=== PATIENT | female | born 1940 | race Caucasian/White ===

== ENCOUNTER 2018-06-11 21:28 | Observation (INO) ==
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
[2018-06-11] MEDS ORDERED: Morphine Inj 4 MG/ML Vial IV.PUSH ONE ×2 (22:20→23:11)
--- NOTE | 2018-06-11 23:08 | XR ---
EXAM DATE: 06/11/2018 11:02 PM EDT AGE/SEX: 77 years / Female INDICATIONS: Pain from fall. CLINICAL DATA: This is the patient's initial encounter. Patient reports that signs and symptoms have been present for 1 day and indicates a pain score of 5/10. MEDICAL/SURGICAL HISTORY: None. None. COMPARISON: No prior exams available for comparison. FINDINGS: Bony structures are intact and in normal alignment. Osseous density is decreased. Soft tissues are un remarkable. No radiopaque foreign bodies seen. CONCLUSION: No acute findings. Osteopenia. Moderate to severe osteoarthritis on the radial aspect of the wrist. Electronically signed by: Ernie Koenig MD 06/11/2018 11:07 PM EDT
--- NOTE | 2018-06-11 23:15 | XR ---
EXAM DATE: 06/11/2018 11:03 PM EDT AGE/SEX: 77 years / Female INDICATIONS: Pain from fall. CLINICAL DATA: This is the patient's initial encounter. Patient reports that signs and symptoms have been present for 1 day and indicates a pain score of 10/10. MEDICAL/SURGICAL HISTORY: None. None. COMPARISON: No prior exams available for comparison. FINDINGS: Bony structures are intact and in normal alignment. Osseous density is decreased. Soft tissues are un remarkable. No radiopaque foreign bodies seen. CONCLUSION: No acute findings. Osteopenia. Osteoarthritis of the right hip and right knee. Electronically signed by: Ernie Koenig MD 06/11/2018 11:13 PM EDT
--- NOTE | 2018-06-11 23:28 | XR ---
EXAM DATE: 06/11/2018 11:13 PM EDT AGE/SEX: 77 years / Female INDICATIONS: Pain from fall. CLINICAL DATA: This is the patient's initial encounter. Patient reports that signs and symptoms have been present for 1 day and indicates a pain score of 4/10. MEDICAL/SURGICAL HISTORY: None. None. COMPARISON: No prior exams available for comparison. FINDINGS: Bony structures are intact and in normal alignment. Osseous density is normal. Soft tissues are unre markable. No radiopaque foreign bodies seen. CONCLUSION: No acute findings. Mild osteoarthritis in the right foot. Electronically signed by: Ernie Koenig MD 06/11/2018 11:26 PM EDT
--- NOTE | 2018-06-11 23:47 | CT ---
EXAM DATE: 06/11/2018 11:41 PM EDT AGE/SEX: 77 years / Female INDICATIONS: Fall, facial abrasions. CLINICAL DATA: This is the patient's initial encounter. Patient reports that signs and symptoms have been present for 1 day and indicates a pain score of 4/10. MEDICAL/SURGICAL HISTORY: Lymphoma. Cardiovascular disease. . Tracheostomy, right axillary lymph n odes removed. RADIATION DOSE: 56.35 CTDI (mGy) COMPARISON: No prior exams available for comparison. TECHNIQUE: CT of the head without contrast. Using automated exposure control and adjustment of the mA and/or kV according to patient size, radiation dose was kept as low as reasonably achievable to ob tain optimal diagnostic quality images. DICOM format image data is available electronically for revi ew and comparison. FINDINGS: Cerebrum: The ventricles are normal for age. No evidence of midline shift, mass lesion, hemorrhage or acute infarction. No extraaxial fluid collections are seen. Posterior Fossa: The cerebellum and brainstem are intact. The 4th ventricle is midline. The cerebe llopontine angle is unremarkable. Extracranial: The visualized portion of the orbits is intact. Skull: The calvaria is intact. No evidence of skull fracture. CONCLUSION: 1. No acute intracranial abnormalities. Electronically signed by: Ernie Koenig MD 06/11/2018 11:45 PM EDT
--- NOTE | 2018-06-11 23:51 | CT ---
EXAM DATE: 06/11/2018 11:45 PM EDT AGE/SEX: 77 years / Female INDICATIONS: Fall, neck pain. CLINICAL DATA: This is the patient's initial encounter. Patient reports that signs and symptoms have been present for 1 day and indicates a pain score of 4/10. MEDICAL/SURGICAL HISTORY: Lymphoma. Cardiovascular disease. . Tracheostomy, right axillary lym ph nodes removed. RADIATION DOSE: 14.84 CTDI (mGy) COMPARISON: No prior exams available for comparison. TECHNIQUE: Contiguous axial images were obtained using helical multirow detector technique. The vol umetric data was post-processed with multiplanar reconstruction in oblique axial, sagittal, and coron al planes. Using automated exposure control and adjustment of the mA and/or kV according to patient s ize, radiation dose was kept as low as reasonably achievable to obtain optimal diagnostic quality princess ges. DICOM format image data is available electronically for review and comparison. FINDINGS: No acute fracture or spondylolisthesis. Moderate degenerative disc disease and facet arthropathy. No bony canal stenosis. There is extensive suspected pleural and parenchymal scarring at the lung apices . CONCLUSION: 1. No acute findings. Electronically signed by: Ernie Koenig MD 06/11/2018 11:49 PM EDT
--- NOTE | 2018-06-11 23:58 | CT ---
EXAM DATE: 06/11/2018 11:45 PM EDT AGE/SEX: 77 years / Female INDICATIONS: Fall, multiple facial abrasions. CLINICAL DATA: This is the patient's initial encounter. Patient reports that signs and symptoms have been present for 1 day and indicates a pain score of 4/10. MEDICAL/SURGICAL HISTORY: Lymphoma. Cardiovascular disease. . Tracheostomy, right axillary lym ph nodes removed. RADIATION DOSE: 21.96 CTDI (mGy) COMPARISON: No prior exams available for comparison. TECHNIQUE: Contiguous images in the axial and coronal planes were obtained using helical multirow de tector technique. Using automated exposure control and adjustment of the mA and/or kV according to p atient size, radiation dose was kept as low as reasonably achievable to obtain optimal diagnostic chuyita lity images. DICOM format image data is available electronically for review and comparison. FINDINGS: Is no acute fracture. Soft tissue swelling over the right malar eminence. Paranasal sinuses are clear . Temporomandibular joints are intact. CONCLUSION: 1. No acute findings. Electronically signed by: Ernie Koenig MD 06/11/2018 11:57 PM EDT
[2018-06-12] MEDS ORDERED: Diphtheria/Tetanus/Pertussis Vaccine Inj 0.5 ML Syringe IM ONE (00:38)
[2018-06-12 00:40] LABS: Baso % (Auto) 0.6 % (0.0-2.0); Eos # (Auto) 0.3 th/mm3 (0.0-0.4); Hematocrit 37.2 % (35.0-46.0); Hemoglobin 12.5 gm/dL (11.6-15.3); Lymph # (Auto) 1.5 th/mm3 (1.0-4.8); Lymph % (Auto) 17.3 % (9.0-44.0); Mean Corpuscular HGB Conc 33.4 % (32.0-36.0); Mean Corpuscular Hemoglobin 32.9 pg (27.0-34.0); Mean Corpuscular Volume 98.3 fL (80.0-100.0); Mean Platelet Volume 10.8 fL (7.0-11.0); Mono # (Auto) 0.8 th/mm3 (0.0-0.9); Mono % (Auto) 8.8 % (0.0-8.0); Neut % (Auto) 70.3 % (16.0-70.0); Platelet Count 173 th/mm3 (150-450); Red Blood Count 3.79 mil/mm3 (4.00-5.30); Red Cell Distribution Width 14.6 % (11.6-17.2); White Blood Count 8.5 th/mm3 (4.0-11.0)
[2018-06-12] MEDS ORDERED: Lidocaine 2%/Epinephrine 1:100,000 30 ML MDV INFILTRATN ONE (00:41)
[2018-06-12 01:02] LABS: Alkaline Phosphatase 121 U/L (45-117); Total Protein 6.5 g/dL (6.4-8.2)
[2018-06-12 01:09] LABS: Alanine Aminotransferase 31 U/L (10-53); Albumin 3.6 g/dL (3.4-5.0); Anion Gap 12 meq/L (5-15); Aspartate Aminotransferase 29 U/L (15-37); Blood Urea Nitrogen 14 mg/dL (7-18); Calcium 8.5 mg/dL (8.5-10.1); Carbon Dioxide 23.4 meq/L (21.0-32.0); Chloride 110 meq/L (98-107); Glomerular Filtration Rate 57 mL/min (>89); Glucose,Random 99 mg/dL (74-106); Sodium 145 meq/L (136-145)
[2018-06-12 01:10] LABS: Potassium 4.1 meq/L (3.5-5.1)
[2018-06-12] MEDS ORDERED: Lidocaine 2%/Epinephrine 1:200,000 PF Inj 20 ML Vial INFILTRATN ONE (01:49)
[2018-06-12 02:12] LABS: Baso % (Auto) 0.3 % (0.0-2.0); Eos # (Auto) 0.2 th/mm3 (0.0-0.4); Hematocrit 32.9 % (35.0-46.0); Hemoglobin 11.4 gm/dL (11.6-15.3); Lymph # (Auto) 1.2 th/mm3 (1.0-4.8); Lymph % (Auto) 11.6 % (9.0-44.0); Mean Corpuscular HGB Conc 34.6 % (32.0-36.0); Mean Corpuscular Hemoglobin 33.5 pg (27.0-34.0); Mean Corpuscular Volume 96.9 fL (80.0-100.0); Mean Platelet Volume 9.8 fL (7.0-11.0); Mono # (Auto) 0.8 th/mm3 (0.0-0.9); Mono % (Auto) 7.5 % (0.0-8.0); Neut # (Auto) 8.2 th/mm3 (1.8-7.7); Neut % (Auto) 78.6 % (16.0-70.0); Platelet Count 147 th/mm3 (150-450); Red Blood Count 3.39 mil/mm3 (4.00-5.30); Red Cell Distribution Width 14.7 % (11.6-17.2); White Blood Count 10.5 th/mm3 (4.0-11.0)
[2018-06-12] MEDS ORDERED: Temazepam 15 MG Capsule PO PRN (03:20)
[2018-06-12] MEDS ORDERED: Acetaminophen 325 MG Tablet PO PRN (03:20)
[2018-06-12] MEDS ORDERED: Bisacodyl 10 MG Supp RECTAL PRN (03:20)
[2018-06-12] MEDS ORDERED: Morphine Inj 4 MG/ML Vial IV.PUSH PRN (03:30)
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
[2018-06-12] MEDS ORDERED: Senna/Docusate Sodium 8.6/50 MG Tablet PO SCH (09:00)
--- NOTE | 2018-06-12 13:49 | P.DCO ---
- Physical Therapy Order: Evaluate and treat - Certification I have seen patient Janki Santos on 06/12/18. My clinical findings support the need for the requested home health care services because: Limited ability to care for self I certify that my clinical findings support that this patient is homebound because: Unsteady gait/balance
[2018-06-12 15:01] LABS: Hematocrit 34.1 % (35.0-46.0); Hemoglobin 11.4 gm/dL (11.6-15.3); Mean Corpuscular HGB Conc 33.4 % (32.0-36.0); Mean Corpuscular Hemoglobin 32.8 pg (27.0-34.0); Mean Platelet Volume 9.9 fL (7.0-11.0); Platelet Count 153 th/mm3 (150-450); Red Blood Count 3.48 mil/mm3 (4.00-5.30); Red Cell Distribution Width 14.9 % (11.6-17.2); White Blood Count 13.7 th/mm3 (4.0-11.0)
[2018-06-12 15:14] VITALS: BP 131/63; PULSE 84; RESP 20; TEMP 98.8; O2SAT 99
[2018-06-12 15:19] LABS: Prothrombin Time 10.2 sec (9.8-11.6)
== END 2018-06-12 16:28 | disposition home health service (06) ==
LOC: NEDA 21:28 → NEPC 21:28 → NEPHCDU 21:28 → NEDA 06-12 14:39 → NEPHCDU 06-12 14:39
PROVIDERS: ADMIT Internal Medicine; ATTEND Internal Medicine
DX: S70.11XA Contusion of right thigh, initial encounter; W01.0XXA Fall on same level from slipping, tripping and stumbling without subsequent striking against object, initial encounter; S00.81XA Abrasion of other part of head, initial encounter; R26.81 Unsteadiness on feet; E03.9 Hypothyroidism, unspecified; S60.512A Abrasion of left hand, initial encounter; M85.80 Other specified disorders of bone density and structure, unspecified site; M19.071 Primary osteoarthritis, right ankle and foot; M19.032 Primary osteoarthritis, left wrist; M16.11 Unilateral primary osteoarthritis, right hip; Z77.22 Contact with and (suspected) exposure to environmental tobacco smoke (acute) (chronic); Z85.72 Personal history of non-Hodgkin lymphomas; M50.30 Other cervical disc degeneration, unspecified cervical region; Z23 Encounter for immunization